=== PATIENT | female | born 1970 | race Caucasian/White ===

== ENCOUNTER → 2018-06-18 | Outpatient (CLI) | payer OTHER ==
--- NOTE | 2018-06-22 15:59 | MAM ---
EXAM DESCRIPTION: Screening Mammogram,Bilateral: Digital Mammography CLINICAL HISTORY: 47 years Female SCREENING . No complaints. No personal or family history of breast cancer. Childbirth. Hysterectomy. No HRT. LOUIE risk evaluation assessment: Lifetime risk is: 6.4. COMPARISON: Bilateral diagnostic digital mammography 06/14/2014 with bilateral targeted breast ultrasound on the same visit. TECHNIQUE: Bilateral CC and MLO projection full-field images, digital tomosynthesis mammographic technique. Bilateral digital 2-D full-field MLO images. CAD not available for tomosynthesis or 2-D images. FINDINGS: The breast parenchymal density pattern is: Heterogeneously dense breast tissue, which may obscure small masses. No skin thickening or nipple retraction. Bilateral accessory axillary breast tissue. Bilateral solitary microcalcifications. Focal asymmetry in the posterior third of the left breast approximately 6 cm from the nipple 12:00-12:30 position. Not associated with microcalcifications. Mass density versus focal asymmetry middle third of the right breast approximately 6 cm from the nipple 11:30 to 12:00 position. Not Associated with microcalcifications.. IMPRESSION: BI-RADS CATEGORY: 0 - INCOMPLETE- Need additional imaging evaluation. FOLLOW-UP: Recall for additional imaging: Bilateral targeted breast ultrasound of the region of interest. Optional follow-up diagnostic tomosynthesis imaging if indicated by ultrasound images.. Written communication concerning the IMPRESSION and Follow-up, will be mailed to the patient and referring health care provider. Electronically signed by: Levy Stephens MD 06/22/2018 3:56 PM CDT
== END ==
LOC: MAMMO 13:21
PROVIDERS: ATTEND Obstetrics & Gynecology
DX: Z12.31 Encounter for screening mammogram for malignant neoplasm of breast (principal)

== ENCOUNTER → 2018-07-14 | Outpatient (CLI) | payer OTHER ==
--- NOTE | 2018-07-15 12:08 | MAM ---
EXAM DESCRIPTION: 3D Diagnostic, Bilateral (accession [id number]), Breast,Bilateral (accession [id number]): Ultrasound CLINICAL HISTORY: 47 yearsFemale. Bilateral mass densities or focal asymmetries on screening tomosynthesis examination. COMPARISON: Bilateral screening digital breast tomosynthesis 06/18/2018 with report. TECHNIQUE: Transcutaneous scanning of the bilateral breasts utilizing ray-scale and Doppler modes. Scanning performed by the orthopedic podiatrist ; observation by Dr. Stephens.Bilateral LM, CC, and MLO projection full-field images, digital mammographic tomosynthesis technique. Bilateral 2-D digital full-field MLO images. Bilateral digital spot compression breast in the LM and CC projections centered around the posterior nipple line. CAD not available. FINDINGS: The breast parenchymal density pattern is: Heterogeneously dense breast tissue, which may obscure small masses. No skin thickening or nipple retraction . The spot compression views do not eliminate the focal asymmetry and indicate possible mass densities. No abnormal microcalcifications are seen. Ultrasound: Scanning of the left breast from the 12:00 sector to the 3:00 sector. Nipple to 4 cm posterior. Mostly fibroglandular and fibrocystic tissues with minimal fat. Multiple circumscribed anechoic cysts are seen with circumscribed kendall, posterior acoustic enhancement, nonvascularity, and wider than tall orientation. One cyst may contain debris measuring 5.8 x 3.5 x 5.7 mm, but not vascular. Scanning of the right breast 932 12:00 sectors anterior middle third of the breast. Multiple circumscribed anechoic masses wider than tall orientation no vascularity and posterior acoustic enhancement visualized ranging in size from 3 mm to 1.2 cm. At the 12:00 position, 2 cm from the nipple, is a circumscribed mass which is hypoechoic nonvascular wider than tall and central posterior acoustic enhancement within shadowing. Dimensions are 8.0 x 7.4 x 4.8 mm. This may represent a fibroadenoma. IMPRESSION: Mostly cysts bilaterally in fibrocystic breast tissue. Possible cyst with debris in the left breast and possible fibroadenoma right breast. ASSESSMENT: BI-RADS CATEGORY: 3 - PROBABLY BENIGN. MANAGEMENT: Short interval (6-month) follow-up bilateral targeted breast ultrasound with diagnostic tomosynthesis right breast.. The FINDINGS and the FOLLOW-UP plan were reviewed in person with the patient after the examination. Written communication explaining the IMPRESSION and FOLLOW-UP will be mailed to the patient and referring care provider. Electronically signed by: Levy Stephens MD 07/15/2018 12:04 PM CDT
== END ==
LOC: MAMMO 08:08
PROVIDERS: ATTEND Nurse Practitioner Family
DX: R92.8 Other abnormal and inconclusive findings on diagnostic imaging of breast (principal)
CPT/HCPCS: 76641; 77066; G0279

== ENCOUNTER → 2019-01-06 | Outpatient (CLI) | payer OTHER ==
--- NOTE | 2019-01-06 15:49 | MRI ---
EXAM DESCRIPTION: Cervical Spine: MRI. CLINICAL HISTORY: 48 years Female RADICULOPATHY CERVICAL REGION COMPARISON: Radiograph cervical spine June 2018. TECHNIQUE: Multiplanar, high-field MRI, multiple sequences, non-contrast Cervical spine. FINDINGS: C5-C6: Left posterior and left intraforaminal disc bulge or small protrusion along with uncinate spur abutting the left ventral cord, left C6 nerve, and left neural foramen. Neuroforamen mild narrowing. Mild narrowing of the left paracentral canal. Central canal and right neuroforamen are patent. C6-C7: Minimal disc desiccation with disc space preserved and no bulging. Canal and neural foramina are patent. Normal signal in the remaining discs with no bulging. Disc spaces preserved. Canal and neural foramina are patent. Facet joints negative Spinal alignment kyphosis C4-C6.. No cord compression or cord edema. Atlantoaxial joint negative. Base of the cerebellar tonsils is at the level of the foramen magnum. Paravertebral soft tissues unremarkable.. Vertebral bodies are not compressed at any level. Otherwise normal marrow signal in the remaining vertebral bodies and the posterior elements. IMPRESSION: 1. Focal disc bulge or small protrusion left of midline at C5-C6 also involving the left neural foramen with left uncinate spur. No canal or neural foraminal stenosis. Spine is mildly kyphotic. Electronically signed by: Levy Stephens MD 01/06/2019 3:47 PM CDT
== END ==
LOC: MRI 09:00
PROVIDERS: ATTEND Nurse Practitioner Family
DX: M50.122 Cervical disc disorder at C5-C6 level with radiculopathy (principal); M25.78 Osteophyte, vertebrae

== ENCOUNTER → 2019-04-12 | Outpatient (CLI) | payer OTHER ==
--- NOTE | 2019-04-12 15:49 | RAD ---
EXAM DESCRIPTION: Cervical Spine, 2-3 Views CLINICAL HISTORY: 48 years Female, CERVICAL DISC DISORDER RADICULOPATHY COMPARISON: MRI of the cervical spine dated 01/06/2019. TECHNIQUE: AP and lateral radiographs of the cervical spine. FINDINGS: Minimal anterolisthesis of C2 over C3. C7 vertebral body is not well-visualized on the lateral radiograph. Intervertebral disc spacers noted at C5-C6 level. Mild multilevel degenerative disc disease and uncovertebral joint arthropathy. IMPRESSION: Mild multilevel degenerative disc disease and uncovertebral joint arthropathy. Minimal anterolisthesis of C2 over C3. Electronically signed by: Aleksander Pizano MD 04/12/2019 3:48 PM [facility]
--- NOTE | 2019-04-12 15:50 | RAD ---
EXAM DESCRIPTION: Cervical Spine,Flex/Ext CLINICAL HISTORY: 48 years Female, CERVICAL DISC DISORDER RADICULOPATHY COMPARISON: None. TECHNIQUE: Flexion and extension views of the cervical spine. FINDINGS: Grade 1 anterolisthesis of C2 over C3 appears to improve with extension. IMPRESSION: Grade 1 anterolisthesis of C2 over C3 appears to improve with extension. Electronically signed by: Aleksander Pizano MD 04/12/2019 3:48 PM [employer]
== END ==
LOC: RAD 13:12
PROVIDERS: ATTEND Neurological Surgery
DX: M43.12 Spondylolisthesis, cervical region (principal); M50.122 Cervical disc disorder at C5-C6 level with radiculopathy; M50.30 Other cervical disc degeneration, unspecified cervical region; M12.9 Arthropathy, unspecified

== ENCOUNTER → 2019-09-08 | Outpatient (CLI) | payer OTHER ==
--- NOTE | 2019-09-08 13:05 | RAD ---
Study: Frontal and Lateral Radiographs of the Chest. Indication: CERVICAL DISC DISORDER WITH RADICULOPATHY Comparison: None Impression: Heart size upper limits of normal. Lungs clear. No acute osseous abnormality. Electronically signed by: Americo Pineda MD 09/08/2019 1:04 PM CDT
--- NOTE | 2019-09-08 14:07 | RAD ---
EXAM DESCRIPTION: Shoulder,Left 2 or More Views CLINICAL HISTORY: CERVICAL DISC DISORDER WITH RADICULOPATHY COMPARISON: None. IMPRESSION: 3 views of the left shoulder show no acute fracture, focal bone destruction, or joint dislocation. The left acromioclavicular joint is unremarkable. Electronically signed by: Cristo Mckenzie MD 09/08/2019 2:05 PM CDT
== END ==
LOC: RAD 08:32
PROVIDERS: ATTEND Neurological Surgery
DX: M50.122 Cervical disc disorder at C5-C6 level with radiculopathy (principal)

== ENCOUNTER → 2020-05-11 | Outpatient (CLI) | payer BC ==
--- NOTE | 2020-05-14 08:38 | CT ---
EXAM DESCRIPTION: Cervical Spine: Computed Tomography. CLINICAL HISTORY: 49 years Female paralysis of vocal cords and larynx COMPARISON: None Available. TECHNIQUE: Spiral, axial 2.5 x 2.5 mm scans through the cervical spine without contrast. Coronal and sagittal 2.0 mm Reconstructions. Total Exam DLP: History 69 mGy-cm. This exam was performed according to our departmental dose-optimization program which includes automated exposure control, adjustment of the mA and/or kV according to patient size and/or use of iterative reconstruction technique; to reduce radiation dose to as low as reasonably achievable (ALARA). FINDINGS: Previous ACDF C5-C6. Bilateral screws at each level. Screws are intact. Normal bone density around the screws. Anterior plate is intact but elevated above the bony surface to the left of midline. Interbody fusion device customary location with minimal osseous formation in the posterior disc space. Canal and neural foramina are patent. Minimal narrowing of the atlantoaxial joint with marginal spurs. Small bone density on the right aspect of the joint abutting the dens. Minimal narrowing and subchondral sclerosis bilaterally atlantooccipital joint. C2-C3: Disc space is maintained. Grade 1 anterolisthesis 2 mm. Minimal facet arthrosis on the left. No canal or neuroforaminal stenosis. C3-C4: Minimal disc space narrowing. Trace anterolisthesis. Tiny disc bulge. Facet joints unremarkable. No canal or neuroforaminal stenosis. C4-C5: Disc space maintained. No significant disc bulging. Trace anterolisthesis. Facet joints are unremarkable. No canal or foraminal stenosis. C6-C7: Disc space maintained with no significant bulging. Facet joints negative. Canal and foramina are patent. Similar findings at C7-T1 and T1-T2. IMPRESSION: 1. ACDF at C5-C6 with anatomic alignment. Anterior plate is elevated from the bone on the left. No complications. Interbody fusion device customary position. Minimal interbody osseous formation. 2. Arthrosis and bony hypertrophy minimal at the atlantoaxial joint. Small bony loose body on the right side of the dens. Anterolisthesis at several levels. Facet arthrosis at several levels. Electronically signed by: Levy Stephens MD 05/14/2020 8:37 AM [employer]
== END ==
LOC: CT 12:10
PROVIDERS: ATTEND Otolaryngology
DX: J38.01 Paralysis of vocal cords and larynx, unilateral (principal); R13.12 Dysphagia, oropharyngeal phase; Z98.1 Arthrodesis status; M47.892 Other spondylosis, cervical region; M43.12 Spondylolisthesis, cervical region; M24.08 Loose body, other site